=== PATIENT | female | born 1950 | race Caucasian/White ===

== ENCOUNTER → 2018-04-13 | Outpatient (CLI) | payer MEDICARE ==
[~2018-04-13] MED LIST: ATOR40TA PO; LEVO100T5 PO
[2018-04-13 15:05] LABS: BASOPHILS # (AUTO) 0.03 x10^3/uL (0-0.1); BASOPHILS % (AUTO) 1 % (0-1); EOSINOPHILS # (AUTO) 0.04 x10^3/uL (0-0.4); EOSINOPHILS % (AUTO) 1 % (1-7); LYMPHOCYTES # (AUTO) 2.05 x10^3/uL (1-3.4); LYMPHOCYTES % (AUTO) 44 % (22-44); MD NO; MEAN CORPUSCULAR HEMOGLOBIN 33.6 pg (27.0-34.8); MEAN CORPUSCULAR HGB CONC 34.1 g/dL (32.4-35.8); MEAN CORPUSCULAR VOLUME 98.6 fL (80-100); MEAN PLATELET VOLUME 10.6 fL (7.4-10.4); MONOCYTES # (AUTO) 0.27 x10^3/uL (0.2-0.8); MONOCYTES % (AUTO) 6 % (2-9); NEUTROPHILS # (AUTO) 2.28 x10^3/uL (1.8-6.8); NEUTROPHILS % (AUTO) 49 % (42-75); PLATELET COUNT 148 x10^3/uL (130-400); RED BLOOD COUNT 4.03 x10^6/uL (3.82-5.3); RED CELL DISTRIBUTION WIDTH 13.3 % (9.6-15.2)
[2018-04-13 15:15] LABS: ALANINE AMINOTRANSFERASE 36 U/L (12-78); ALBUMIN 3.8 g/dL (3.4-5.0); ANION GAP 8 mmol/L (5-15); CALCIUM 8.8 mg/dL (8.5-10.1); CHLORIDE 108 mmol/L (98-107); CREATININE 0.93 mg/dL (0.55-1.02)
[2018-04-13 15:17] LABS: ALKALINE PHOSPHATASE 82 U/L (45-117); BILIRUBIN,TOTAL 0.6 mg/dL (0.2-1.0); TOTAL PROTEIN 7.1 g/dL (6.4-8.2)
[2018-04-13 15:40] LABS: INTERNATIONAL NORMALIZED RATIO 1.04 (0.93-1.1); PROTHROMBIN TIME 10.7 Seconds (9.6-11.5)
== END | disposition home or self-care (01) ==
LOC: STAR 14:00
PROVIDERS: ATTEND Specialist
DX: Z01.818 Encounter for other preprocedural examination (principal); I45.81 Long QT syndrome
CPT/HCPCS: 36415; 71046; 80053; 85025; 85610; 85730; 93005

== ENCOUNTER 2018-04-20 05:29 | Day surgery (SDC) | payer MEDICARE ==
[~2018-04-20] VITALS: Ht 177.8 cm; Wt 72.7 kg
[2018-04-20] MEDS ORDERED: LACTATED RINGERS 1,000 ML IV SCH (07:17)
[2018-04-20] MEDS ORDERED: BUPIVACAINE/PF-EPI 0.25% 1:200K ONE (07:18)
[2018-04-20] MEDS ORDERED: MIDAZOLAM 1 MG/ML, 2ML ONE (09:51)
[2018-04-20] MEDS ORDERED: FENTANYL PF 100 MCG/2ML ONE (09:51)
[2018-04-20] MEDS ORDERED: DEXAMETHASONE 4 MG/ML, 1ML ONE (09:58)
[2018-04-20] MEDS ORDERED: PROPOFOL 10 MG/ML, 20ML ONE (09:58)
[2018-04-20] MEDS ORDERED: ONDANSETRON 2MG/ML, 2ML ONE (09:58)
[2018-04-20] MEDS ORDERED: PROPOFOL 10 MG/ML, 50ML ONE (09:58)
[2018-04-20] MEDS ORDERED: MEPERIDINE/PF 50 MG/ML ONE (11:17)
[2018-04-20] MEDS ORDERED: FENTANYL PF 100 MCG/2ML IV PRN (12:30)
[2018-04-20] MEDS ORDERED: MEPERIDINE/PF 25MG/0.5ML IVPush PRN (12:30)
== END 2018-04-20 13:15 | disposition home or self-care (01) ==
LOC: OUT 05:29
PROVIDERS: ATTEND Specialist
DX: D07.1 Carcinoma in situ of vulva (principal); L90.0 Lichen sclerosus et atrophicus; L29.2 Pruritus vulvae; E03.9 Hypothyroidism, unspecified; E78.5 Hyperlipidemia, unspecified; F32.9 Major depressive disorder, single episode, unspecified; F41.9 Anxiety disorder, unspecified; L98.8 Other specified disorders of the skin and subcutaneous tissue; Z98.890 Other specified postprocedural states; Z72.89 Other problems related to lifestyle; Z79.899 Other long term (current) drug therapy
CPT/HCPCS: 56620; 88305; J1100; J2175; J2250; J2405; J2704; J3010